=== PATIENT | female | born 2000 | race Hispanic/Latino ===

== ENCOUNTER 2021-09-17 14:45 | Outpatient (CLI) | payer OTHER ==
[~2021-09-17] VITALS: Ht 162.6 cm; Wt 75.1 kg
[2021-09-17] MEDS ORDERED: PRENTAB9 PO (15:17)
[2021-09-17] MEDS ORDERED: HOME MED LIST COMPLETE! XX SCH (15:20)
[2021-09-17 15:37] VITALS: BP 132/68
== END 2021-09-17 16:20 | disposition home or self-care (01) ==
LOC: M LDO 14:45
PROVIDERS: ATTEND Obstetrics & Gynecology
DX: O47.1 False labor at or after 37 completed weeks of gestation (principal); O48.0 Post-term pregnancy; Z3A.40 40 weeks gestation of pregnancy
CPT/HCPCS: 59025; G0463

== ENCOUNTER 2021-09-18 09:30 | Inpatient (IN) | payer OTHER ==
[2021-09-18] VITALS (28 sets, daily range): BP systolic 98–141; BP diastolic 53–88
[~2021-09-18] VITALS: Ht 162.6 cm; Wt 74.7 kg
[~2021-09-18 09:30] MED LIST: PRENTAB9 PO
[2021-09-18] MEDS ORDERED: HOME MED LIST COMPLETE! XX SCH (10:00)
[2021-09-18] MEDS ORDERED: LACTATED RINGER'S 1000 ML IV STA (10:23)
[2021-09-18] MEDS ORDERED: LIDOCAINE 1% MDV 20ML VIAL INFIL PRN (10:25)
[2021-09-18] MEDS ORDERED: LR 1,000 ML IV SCH ×2 (10:25→13:20)
[2021-09-18] MEDS ORDERED: OXYTOCIN DRIP 30 UNITS in IV 1 EA IV PRN (10:25)
[2021-09-18 11:13] LABS: HEMATOCRIT 38.7 % (36.0-47.0); HEMOGLOBIN 13.2 g/dl (12.0-15.5); MEAN CORPUSCULAR HEMOGLOBIN 29.9 pg (27.0-33.0); MEAN CORPUSCULAR HGB CONC 34.1 g/dl (32.0-36.5); MEAN CORPUSCULAR VOLUME 87.6 fl (80.0-96.0); PLATELET COUNT, AUTOMATED 168 10^3/uL (150-450); RED BLOOD COUNT 4.42 10^6/uL (4.00-5.40); WHITE BLOOD COUNT 10.9 10^3/uL (4.0-10.0)
[2021-09-18] MEDS ORDERED: OXYTOCIN DRIP 30 UNITS in IV 1 EA IV SCH ×30 (13:20→18:05)
[2021-09-18] MEDS ORDERED: FENTANYL 2MCG/ML ROPIVACAINE 0.2% IN 0.9% NACL 100ML IVBAG As Ordered ONE (15:30)
[2021-09-18] MEDS ORDERED: EPIDURAL/PCA KEYS XX PRN (16:30)
[2021-09-18] MEDS ORDERED: diphenhydrAMINE 50MG/ML VIAL (J1200) IV PRN (16:30)
[2021-09-18] MEDS ORDERED: FENTANYL/ROPIVACAINE/NACL BAG 100 ML EPIDURAL SCH (16:30)
[2021-09-18] MEDS ORDERED: NALOXONE INJ 0.4MG/1ML VIAL (J2310 PER 1MG) IV PRN (16:30)
[2021-09-18] MEDS ORDERED: ePHEDrine SULFATE 25 MG/5 ML(5MG/ML) SYRINGE IV PRN (16:30)
[2021-09-18] MEDS ORDERED: ONDANSETRON 4MG/2ML VIAL IV PRN (16:30)
[2021-09-18] MEDS ORDERED: REFRIGERATOR IV KEYS XX PRN (16:30)
[2021-09-18] MEDS ORDERED: EPIDURAL COMMENT XX SCH (16:30)
[2021-09-18] MEDS ORDERED: LACTATED RINGER'S 1000 ML IV PRN (16:30)
[2021-09-18] MEDS ORDERED: ACETAMINOPHEN 500 MG TAB PO PRN ×3 (17:45→18:05)
[2021-09-18] MEDS ORDERED: METHYLERGONOVINE MALEATE 0.2 MG TAB PO PRN ×15 (17:45→18:05)
[2021-09-18] MEDS ORDERED: IBUPROFEN 800 MG TAB PO PRN ×15 (17:45→18:05)
[2021-09-18] MEDS ORDERED: DIBUCAINE 1% OINTMENT 30GM TOP PRN ×15 (17:45→18:05)
[2021-09-18] MEDS ORDERED: RHOGAM 300 MCG (1500 IU) INJ (J2790) IM SCH ×14 (17:45)
[2021-09-18] MEDS ORDERED: MOM 30ML SUSPENSION UDC PO PRN ×15 (17:45→18:05)
[2021-09-18] MEDS ORDERED: DOCUSATE SODIUM 100MG CAPSULE PO PRN ×15 (17:45→18:05)
[2021-09-18] MEDS ORDERED: ANUSOL HC CREAM 30GM TOP PRN (18:05)
[2021-09-19 05:54] VITALS: BP 123/72
[2021-09-19] MEDS: PRENATAL VITAMINS CHEWABLE TABLET PO SCH (08:53)
[2021-09-19] MEDS ORDERED: PRENATAL VITAMINS CHEWABLE TABLET PO SCH ×14 (09:00)
[2021-09-19 18:00] VITALS: BP 103/70
[2021-09-20 06:00] VITALS: BP 111/56
[2021-09-20] MEDS ORDERED: ACET-683 PO (07:33)
[2021-09-20] MEDS ORDERED: IBUP80TA PO (07:33)
[2021-09-20] MEDS: PRENATAL VITAMINS CHEWABLE TABLET PO SCH (07:53)
== END 2021-09-20 12:35 | disposition home or self-care (01) | DRG 807 ==
LOC: M LDO 09:30 → M LDI 10:21 → M OBS 20:14
PROVIDERS: ADMIT Registered Nurse; ATTEND Obstetrics & Gynecology
PROC: 10E0XZZ Delivery of Products of Conception, External Approach (ICD-10-PCS; principal; 2021-09-18)
DX: O69.81X0 Labor and delivery complicated by cord around neck, without compression, not applicable or unspecified (principal); Z37.0 Single live birth; Z3A.40 40 weeks gestation of pregnancy

== ENCOUNTER 2022-12-19 20:21 | Emergency (ER) | payer OTHER ==
[~2022-12-19] VITALS: Ht 162.6 cm; Wt 61.4 kg
[~2022-12-19 20:21] MED LIST changes: +ACET-683 PO; +IBUP80TA PO
[2022-12-19 20:22] VITALS: TEMP 98.2; O2SAT 95
[2022-12-19 21:06] LABS: BASO % 0.3 % (0.0-1.0); EOS # 0.2 10^3/uL (0.0-0.5); EOS % 1.4 % (0.0-3.0); HEMATOCRIT 40.9 % (36.0-47.0); HEMOGLOBIN 14.3 g/dl (12.0-15.5); LYMPH # 2.7 10^3/uL (1.5-5.0); LYMPH % 25.2 % (24.0-44.0); MEAN CORPUSCULAR HEMOGLOBIN 30.8 pg (27.0-33.0); MONO # 0.6 10^3/uL (0.0-0.8); MONO % 5.2 % (2.0-8.0); NEUTROPHILS # 7.2 10^3/uL (1.5-8.5); NEUTROPHILS % 67.6 % (36.0-66.0); PLATELET COUNT, AUTOMATED 253 10^3/uL (150-450); RED BLOOD COUNT 4.65 10^6/uL (4.00-5.40); WHITE BLOOD COUNT 10.6 10^3/uL (4.0-10.0)
[2022-12-19 21:33] LABS: HCG, SERUM QUANTITATIVE 31.6 MIU/ML (<4.2)
[2022-12-19 21:35] LABS: BLOOD UREA NITROGEN 11 MG/DL (9-23); CALCIUM LEVEL 8.7 MG/DL (8.5-10.1); CARBON DIOXIDE LEVEL 26 MMOL/L (20-31); CHLORIDE LEVEL 107 MMOL/L (98-107); CREATININE FOR GFR 0.79 MG/DL (0.55-1.30); GLOMERULAR FILTRATION RATE > 60.0 (>60); GLUCOSE, FASTING 112 MG/DL (60-100); POTASSIUM SERUM 3.6 MMOL/L (3.5-5.1); SODIUM LEVEL 139 MMOL/L (136-145)
[2022-12-20] MEDS ORDERED: CEPHALEXIN 500 MG CAP PO ONE (00:30)
[2022-12-20] MEDS ORDERED: CEPH500C PO (00:31)
[2022-12-20] MEDS ORDERED: METR-265 PO (00:53)
[2022-12-20] MEDS ORDERED: metroNIDAZOLE (FLAGYL) 500MG TABLET PO ONE (00:55)
[2022-12-20 01:18] VITALS: BP 134/80
[2022-12-20 03:35] LABS: GC DNA AMPLIFICATION NEGATIVE (NEGATIVE)
== END 2022-12-20 01:24 | disposition home or self-care (01) ==
LOC: M ED 20:21
DX: O20.0 Threatened abortion (principal); O23.31 Infections of other parts of urinary tract in pregnancy, first trimester; O98.819 Other maternal infectious and parasitic diseases complicating pregnancy, unspecified trimester; Z3A.00 Weeks of gestation of pregnancy not specified; Z79.899 Other long term (current) drug therapy

== ENCOUNTER → 2023-07-03 | Outpatient (REF) | payer OTHER ==
[~2023-07-03] MED LIST changes: +CEPH500C PO; +METR-265 PO
[2023-07-03 18:03] LABS: CHLAMYDIA DNA AMPLIFICATION NEGATIVE (NEGATIVE); GC DNA AMPLIFICATION NEGATIVE (NEGATIVE)
== END ==
LOC: M SFHCWAGY 15:34
PROVIDERS: ATTEND Specialist
DX: Z34.81 Encounter for supervision of other normal pregnancy, first trimester (principal)

== ENCOUNTER → 2023-08-03 | Outpatient (CLI) | payer OTHER | LOC: M WHC 09:12 | PROVIDERS: ATTEND Specialist | DX: Z34.82 Encounter for supervision of other normal pregnancy, second trimester (principal) ==

== ENCOUNTER → 2023-08-28 | Outpatient (CLI) | payer OTHER | LOC: M WHC 15:47 | PROVIDERS: ATTEND Obstetrics & Gynecology | DX: O36.5990 Maternal care for other known or suspected poor fetal growth, unspecified trimester, not applicable or unspecified (principal) ==

== ENCOUNTER → 2023-09-07 | Outpatient (CLI) | payer OTHER ==
[2023-09-07 17:59] LABS: HEMATOCRIT 36.8 % (36.0-47.0); HEMOGLOBIN 12.8 g/dl (12.0-15.5); MEAN CORPUSCULAR HEMOGLOBIN 31.9 pg (27.0-33.0); MEAN CORPUSCULAR HGB CONC 34.8 g/dl (32.0-36.5); MEAN CORPUSCULAR VOLUME 91.8 fl (80.0-96.0); PLATELET COUNT, AUTOMATED 191 10^3/uL (150-450); RED BLOOD COUNT 4.01 10^6/uL (4.00-5.40)
== END ==
LOC: M PLALAB 15:40
PROVIDERS: ATTEND Obstetrics & Gynecology
DX: Z34.92 Encounter for supervision of normal pregnancy, unspecified, second trimester (principal)

== ENCOUNTER → 2023-09-11 | Outpatient (CLI) | payer OTHER | LOC: M WHC 07:55 | PROVIDERS: ATTEND Obstetrics & Gynecology | DX: O36.5920 Maternal care for other known or suspected poor fetal growth, second trimester, not applicable or unspecified (principal); Z3A.26 26 weeks gestation of pregnancy ==

== ENCOUNTER → 2023-09-18 | Outpatient (CLI) | payer OTHER | LOC: M WHC 06:57 | PROVIDERS: ATTEND Obstetrics & Gynecology | DX: O36.5920 Maternal care for other known or suspected poor fetal growth, second trimester, not applicable or unspecified (principal); Z3A.27 27 weeks gestation of pregnancy ==

== ENCOUNTER → 2023-09-18 | Outpatient (CLI) | payer OTHER | LOC: M PLALAB 07:29 | PROVIDERS: ATTEND Obstetrics & Gynecology | DX: Z34.92 Encounter for supervision of normal pregnancy, unspecified, second trimester (principal) ==

== ENCOUNTER → 2023-09-25 | Outpatient (CLI) | payer OTHER | LOC: M WHC 06:52 | PROVIDERS: ATTEND Obstetrics & Gynecology | DX: O36.5920 Maternal care for other known or suspected poor fetal growth, second trimester, not applicable or unspecified (principal); Z3A.24 24 weeks gestation of pregnancy ==

== ENCOUNTER → 2023-10-02 | Outpatient (CLI) | payer OTHER | LOC: M WHC 06:54 | PROVIDERS: ATTEND Obstetrics & Gynecology | DX: O36.5930 Maternal care for other known or suspected poor fetal growth, third trimester, not applicable or unspecified (principal); Z3A.29 29 weeks gestation of pregnancy ==

== ENCOUNTER → 2023-10-09 | Outpatient (CLI) | payer OTHER | LOC: M WHC 06:52 | PROVIDERS: ATTEND Obstetrics & Gynecology | DX: O36.5920 Maternal care for other known or suspected poor fetal growth, second trimester, not applicable or unspecified (principal); Z3A.30 30 weeks gestation of pregnancy ==

== ENCOUNTER → 2023-10-16 | Outpatient (CLI) | payer OTHER | LOC: M WHC 06:53 | PROVIDERS: ATTEND Obstetrics & Gynecology | DX: O36.5920 Maternal care for other known or suspected poor fetal growth, second trimester, not applicable or unspecified (principal); Z3A.00 Weeks of gestation of pregnancy not specified ==

== ENCOUNTER → 2023-10-23 | Outpatient (CLI) | payer OTHER | LOC: M WHC 06:52 | PROVIDERS: ATTEND Obstetrics & Gynecology | DX: O36.5920 Maternal care for other known or suspected poor fetal growth, second trimester, not applicable or unspecified (principal); Z3A.30 30 weeks gestation of pregnancy ==

== ENCOUNTER → 2023-10-30 | Outpatient (CLI) | payer OTHER | LOC: M WHC 06:59 | PROVIDERS: ATTEND Obstetrics & Gynecology | DX: O36.5920 Maternal care for other known or suspected poor fetal growth, second trimester, not applicable or unspecified (principal); Z3A.33 33 weeks gestation of pregnancy ==

== ENCOUNTER → 2023-11-06 | Outpatient (CLI) | payer OTHER | LOC: M WHC 07:01 | PROVIDERS: ATTEND Obstetrics & Gynecology | DX: O36.5930 Maternal care for other known or suspected poor fetal growth, third trimester, not applicable or unspecified (principal); Z3A.34 34 weeks gestation of pregnancy ==

== ENCOUNTER → 2023-11-13 | Outpatient (CLI) | payer OTHER | LOC: M WHC 11:38 | PROVIDERS: ATTEND Obstetrics & Gynecology | DX: O36.5920 Maternal care for other known or suspected poor fetal growth, second trimester, not applicable or unspecified (principal) ==

== ENCOUNTER → 2023-11-17 | Outpatient (REF) | payer OTHER | LOC: M SFHCWAGY 10:09 | PROVIDERS: ATTEND Obstetrics & Gynecology | DX: Z36.85 Encounter for antenatal screening for Streptococcus B (principal); Z3A.35 35 weeks gestation of pregnancy ==

== ENCOUNTER → 2023-11-20 | Outpatient (CLI) | payer OTHER | LOC: M WHC 11:24 | PROVIDERS: ATTEND Advanced Practice Midwife | DX: O36.5993 Maternal care for other known or suspected poor fetal growth, unspecified trimester, fetus 3 (principal); Z3A.36 36 weeks gestation of pregnancy ==

== ENCOUNTER → 2023-11-27 | Outpatient (CLI) | payer OTHER ==
[~2023-11-27] MED LIST changes: +FAMO10TA50 PO
== END ==
LOC: M WHC 12:25
PROVIDERS: ATTEND Obstetrics & Gynecology
DX: O36.5930 Maternal care for other known or suspected poor fetal growth, third trimester, not applicable or unspecified (principal); Z3A.37 37 weeks gestation of pregnancy

== ENCOUNTER 2023-12-03 07:41 | Inpatient (IN) | payer OTHER ==
[~2023-12-03] VITALS: Ht 162.6 cm; Wt 74.8 kg
[2023-12-03] VITALS (17 sets, daily range): BP systolic 85–128; BP diastolic 49–66
[~2023-12-03 07:41] MED LIST changes: -FAMO10TA50 PO
[2023-12-03] MEDS ORDERED: FAMO10TA50 PO (08:10)
[2023-12-03] MEDS ORDERED: HOME MED LIST COMPLETE! XX SCH (08:15)
[2023-12-03 08:51] LABS: HEMOGLOBIN 13.3 g/dl (12.0-15.5); MEAN CORPUSCULAR HEMOGLOBIN 32.3 pg (27.0-33.0); MEAN CORPUSCULAR VOLUME 92.2 fl (80.0-96.0); PLATELET COUNT, AUTOMATED 147 10^3/uL (150-450); RED BLOOD COUNT 4.12 10^6/uL (4.00-5.40); WHITE BLOOD COUNT 8.2 10^3/uL (4.0-10.0)
[2023-12-03] MEDS ORDERED: LIDOCAINE 1% MDV 20ML VIAL INFIL PRN (08:55)
[2023-12-03] MEDS ORDERED: OXYTOCIN DRIP 30 UNITS in IV 1 EA IV PRN (08:55)
[2023-12-03] MEDS: miSOPROStol 50MCG 1/2 TABLET SL SCH (09:13)
[2023-12-03] MEDS: OXYTOCIN DRIP 30 UNITS in IV 1 EA IV SCH (23:02)
[2023-12-03] MEDS: LR 1,000 ML IV SCH (23:02)
[2023-12-04] VITALS (39 sets, daily range): BP systolic 86–135; BP diastolic 52–84; O2SAT 98
[2023-12-04] MEDS ORDERED: ONDANSETRON 4MG 2ML VIAL IV PRN (06:10)
[2023-12-04] MEDS ORDERED: ePHEDrine SULFATE 25 MG/5 ML(5MG/ML) SYRINGE IVP PRN (06:10)
[2023-12-04] MEDS ORDERED: NALOXONE INJ 0.4MG/1ML VIAL IV PRN (06:10)
[2023-12-04] MEDS ORDERED: EPIDURAL/PCA KEYS XX PRN (06:10)
[2023-12-04] MEDS ORDERED: diphenhydrAMINE 50MG/ML VIAL IV PRN (06:10)
[2023-12-04] MEDS ORDERED: LR 500 ML IV PRN (06:10)
[2023-12-04] MEDS: FENTANYL/ROPIVACAINE/NACL BAG 100 ML EPIDURAL SCH (06:44)
[2023-12-04] MEDS ORDERED: ACETAMINOPHEN 500 MG TAB PO PRN (11:25)
[2023-12-04] MEDS ORDERED: RHO(D) IMMUNE GLOBULIN/MALTOSE 500MCG(2500IU)/2.2ML VIAL (WINRHO) IM SCH (11:25)
[2023-12-04] MEDS ORDERED: DIBUCAINE 1% OINTMENT 30GM TOP PRN (11:25)
[2023-12-04] MEDS ORDERED: ACETAMINOPHEN TAB 650MG DOSE (2X325MG) PO PRN (11:25)
[2023-12-04] MEDS ORDERED: DOCUSATE SODIUM 100MG CAPSULE PO PRN (11:25)
[2023-12-04] MEDS ORDERED: ANUSOL HC CREAM 30GM TOP PRN (11:25)
[2023-12-04] MEDS ORDERED: METHYLERGONOVINE MALEATE 0.2 MG TAB PO PRN (11:25)
[2023-12-04] MEDS: AMPICILLIN SOD/SULBACTAM SOD 3 GM in D5W MINI-BAG PLUS 100 ML IV ONE (11:46)
[2023-12-04] MEDS: IBUPROFEN 600MG TAB PO PRN (18:04)
[2023-12-05] MEDS: IBUPROFEN 800 MG TAB PO PRN (01:12)
[2023-12-05 06:00] VITALS: BP 101/55; O2SAT 99
[2023-12-05] MEDS: PRENATAL VITAMINS CHEWABLE TABLET PO SCH (08:18)
[2023-12-05] MEDS ORDERED: IBUP-1022 PO (08:54)
[2023-12-05] MEDS ORDERED: NORE0.353 PO (08:54)
[2023-12-05] MEDS ORDERED: COLA100C5 PO (08:54)
[2023-12-05] MEDS ORDERED: ACET-683 PO (08:54)
[2023-12-06] MEDS ORDERED: MEASLES,MUMPS,RUBELLA VACCINE INJ (MMR-II) SC.IMMUN ONE (09:00)
== END 2023-12-05 14:22 | disposition home or self-care (01) | DRG 807 ==
LOC: M LDI 07:41 → M OBS 12-04 13:31
PROVIDERS: ADMIT Specialist; ATTEND Advanced Practice Midwife
PROC: 3E0P7GC Introduction of Other Therapeutic Substance into Female Reproductive, Via Natural or Artificial Opening (ICD-10-PCS; 2023-12-03)
PROC: 10E0XZZ Delivery of Products of Conception, External Approach (ICD-10-PCS; principal; 2023-12-04)
PROC: 10907ZC Drainage of Amniotic Fluid, Therapeutic from Products of Conception, Via Natural or Artificial Opening (ICD-10-PCS; 2023-12-04)
DX: O36.5930 Maternal care for other known or suspected poor fetal growth, third trimester, not applicable or unspecified (principal); Z37.0 Single live birth; Z3A.38 38 weeks gestation of pregnancy; O43.113 Circumvallate placenta, third trimester; Z79.899 Other long term (current) drug therapy; O69.89X0 Labor and delivery complicated by other cord complications, not applicable or unspecified

== ENCOUNTER → 2024-05-19 | Outpatient (REF) | payer OTHER ==
[~2024-05-19] MED LIST changes: +COLA100C5 PO; +FAMO10TA50 PO; +IBUP-1022 PO; +NORE0.353 PO
[2024-05-23 16:42] LABS: HPV APTIMA Not Detected (Not Detected)
== END ==
LOC: M SFHCWAGY 15:25
PROVIDERS: ATTEND Nurse Practitioner Family
DX: Z12.4 Encounter for screening for malignant neoplasm of cervix (principal); R87.610 Atypical squamous cells of undetermined significance on cytologic smear of cervix (ASC-US)
CPT/HCPCS: 87624; G0123